=== PATIENT | male | born 1940 | race Caucasian/White ===

== ENCOUNTER → 2018-11-14 05:49 | Day surgery (SDC) | payer BC ==
--- NOTE | 2018-11-11 18:46 | HP ---
CC: Dr. Sutherland; Dr. Vincent Figueroa * ADMITTING HISTORY AND PHYSICAL: DATE OF ADMISSION: 11/14/18 ADMITTING DIAGNOSIS: Recurrent bladder cancer. PLANNED PROCEDURE: Transurethral resection of bladder tumor. SURGEON: Dr. Villagran. HISTORY OF PRESENT ILLNESS: Jhonny Roman is a 78-year-old former smoker with a history of recurrent superficial bladder cancer. He had recently undergone office cystoscopy which had revealed a recurrent bladder tumor in the posterior bladder wall. A CT urogram was obtained which did not reveal any abnormalities involving the kidneys or ureters, and he is now being brought in for transurethral resection of the bladder tumor. PAST MEDICAL HISTORY: Significant for: 1. Longstanding coronary artery disease with stable anginal symptoms for which he is followed up with Dr. Figueroa. 2. Diabetes mellitus. 3. High cholesterol. 4. Hypertension. PAST SURGICAL HISTORY: Significant for coronary artery bypass surgery and multiple bladder tumor resections, the most recent one being in 2013. MEDICATIONS ON ADMISSION: 1. Ramipril 10 mg twice a day. 2. Metoprolol 50 mg twice a day. 3. Amlodipine 5 mg daily. 4. Nitroglycerin 0.4 mg per hour patch p.r.n. 5. Aspirin 325 mg daily (currently supposed to be on 81 mg daily for the last week). 6. Pantoprazole sodium 40 mg daily. 7. Tramadol 50 mg every 6 hours p.r.n. 8. Rosuvastatin 20 mg daily. 9. Glipizide 10 mg daily. ALLERGIES: No known drug allergies. SMOKING HISTORY: He is a former smoker, who quit in 1992. REVIEW OF SYSTEMS: He has occasional chest pain with heavy lifting and has had regular followup with Dr. Figueroa and has not required any recent intervention. PHYSICAL EXAMINATION GENERAL: Reveals a pleasant, elderly gentleman. VITAL SIGNS: Blood pressure is 140/74, pulse 76 per minute and regular, temperature 97.9, oxygen saturation 97% on room air. LUNGS: Clear bilaterally. CARDIOVASCULAR: Regular rate and rhythm. S1, S2. ABDOMEN: Soft without masses. IMPRESSION: A 78-year-old former smoker with recurrent bladder tumor. PLAN: Planned procedure is transurethral resection of bladder tumor. [id number]/[facility] #: [id number] MTDD
[~2018-11-14 05:49] MED LIST: Acetaminophen TAB* 325 MG PO PRN; Buffered Lidocaine 1% SYRIN* 1 ML/SYRINGE INTRADERM ONE; Dexamethasone IV* 4 MG/ML 1 ML (4 MG) ONE; Famotidine IV* 10 MG/ML 2 ML (20 mg) IV ONE; Famotidine IV* 10 MG/ML 2 ML (20 mg) ONE; Furosemide IV* 10 MG/ML 2 ML VIAL (20 MG) ONE; HYDROmorphone INJ1* 1 MG/ML SYRINGE IV PRN; Ketorolac INJ* 30 MG/ML 1 ML VIAL ONE; Lactated Ringers 1000 ML Bag* 1,000 ML IV SCH; Lidocaine 2% PF * 5 ML VIAL ONE; Midazolam* 1 MG/ML 5 ML VIAL (5 MG) ONE; Naloxone* 0.4 MG/ML 1 ML VIAL IV PRN; Ondansetron INJ* 2 MG/ML VIAL ONE; Propofol* 10 MG/ML 20 ML BTL ONE; cefTRIAXone(*) 2 GM ADDV.VIAL IVPB ONE; fentaNYL* 50 MCG/ML 2 ML VIAL (100 MCG VIAL) ONE; mitoMYcin PWD* 40 MG in Sterile Water for Inj* 40 ML IRRIGATION ONE; oxyCODONE/Acetamin 5/325 MG* TAB PO PRN
--- NOTE | 2018-11-14 09:36 | OP ---
CC: Dr. Sutherland * DATE OF OPERATION: 11/14/18 - [facility] DATE OF : 38 SURGEON: Liam Villagran MD. ANESTHESIOLOGIST: Dr. Petersen. ANESTHESIA: General. PRE-OP DIAGNOSIS: Recurrent bladder tumor. POST-OP DIAGNOSIS: Recurrent bladder tumor. OPERATIVE PROCEDURE: Transurethral resection and fulguration of bladder tumor ( 2 to 3 cm aggregate). INDICATIONS: Jhonny Roman is a 78-year-old former smoker with a history of recurrent superficial bladder cancer. He was recently evaluated in the office and was noted to have what appears to be a recurrent bladder tumor. COMPLICATIONS: None. ESTIMATED BLOOD LOSS: Minimal. CATHETER: 22-Occitan Rosas. OPERATIVE FINDINGS: 1. Strictures, penile and bulbar urethra. 2. Probable recurrent bladder tumor posterior bladder wall. DESCRIPTION OF PROCEDURE: After induction of general anesthesia, the patient was placed in dorsal lithotomy position. Sequential compression devices were in place and functioning. Initial cystoscopy revealed strictures in the penile and bulbar urethra. The prostate is mildly enlarged. The bladder was examined. Some scaring is noted at the site of previous tumor resections. The trigone and ureteral orifices were unremarkable. In the posterior bladder wall , there were two adjacent areas of what appeared to be probable superficial recurrent bladder tumor. There was no evidence of any high-grade or invasive- appearing tumor. Using a biopsy forceps, phone representative biopsies were obtained and sent for histopathology. Next, a resectoscope was introduced and abnormal appearing areas were completely resected. Hemostasis was secured using the coagulating current. At the end of the procedure, hemostasis appeared satisfactory, and there was no evidence of bladder perforation. A 22-[employer] Rosas was placed for temporary bladder drainage. The patient tolerated the procedure satisfactorily and was transferred back to the recovery area in stable condition. [id number]/[facility] #: [id number] [facility]
[2018-11-14 12:42] VITALS: BP 169/88
== END | disposition home or self-care (01) ==
LOC: OR 05:49
PROVIDERS: ATTEND Urology
DX: C67.9 Malignant neoplasm of bladder, unspecified (principal); I25.10 Atherosclerotic heart disease of native coronary artery without angina pectoris; E11.9 Type 2 diabetes mellitus without complications; E78.00 Pure hypercholesterolemia, unspecified; I10 Essential (primary) hypertension; Z79.82 Long term (current) use of aspirin; Z87.891 Personal history of nicotine dependence
CPT/HCPCS: 88307; J0696; J1100; J1885; J1940; J2250; J2405; J2704; J3010; J9280

== ENCOUNTER 2020-08-25 02:57 | Inpatient (IN) ==
[2020-08-25 05:20] LABS: ABS Basophils 0.1 10^3/ul (0-0.2); ABS Eosinophils 0.3 10^3/ul (0-0.6); ABS Lymphocytes 2.7 10^3/ul (1.0-4.8); ABS Monocytes 0.8 10^3/ul (0-0.8); ABS Neutrophils 4.4 10^3/ul (1.5-7.7); Hematocrit 39 % (42-52); Hemoglobin 13.2 g/dL (14.0-18.0); Lymphocyte % 32.7 %; Mean Corpuscular HGB Conc 34 g/dL (31-36); Mean Corpuscular Hemoglobin 28 pg (27-31); Mean Corpuscular Volume 82 fL (80-94); Mean Platelet Volume 9.7 fL (7.4-10.4); Nucleated Red Blood Cells % 0.1; Platelet Count 134 10^3/uL (150-450); Red Blood Count 4.72 10^6 /uL (4.18-5.48); Red Cell Distribution Width 15 % (10-15); White Blood Count 8.3 10^3/uL (3.5-10.8)
[2020-08-25 05:39] LABS: ALT 20 U/L (7-52); AST 18 U/L (13-39); Albumin 4.3 g/dL (3.2-5.2); Albumin/Globulin Ratio 1.5 (1-3); Alkaline Phosphatase 80 U/L (35-149); Anion Gap 7 mmol/L (2-11); Blood Urea Nitrogen 22 mg/dL (6-24); CO2 Carbon Dioxide 24 mmol/L (22-32); Chloride 104 mmol/L (101-111); EGFR African American 98.2 (>60); EGFR Non-African American 81.2 (>60); Globulin 2.8 g/dL (2-4); Glucose 190 mg/dL (70-100); Potassium 3.9 mmol/L (3.5-5.0); Sodium 135 mmol/L (135-145); Total Protein 7.1 g/dL (6.4-8.9)
[2020-08-25 05:44] LABS: Troponin I 0.07 ng/mL (<0.03)
[2020-08-25] MEDS ORDERED: Ondansetron 4 mg VIAL 2 MG/ML 2 ml VIAL IV PRN (08:07)
[2020-08-25] MEDS ORDERED: Al Hydrox/Mg Hydrox/Simet LIQ 30 ML UDC PO PRN (08:07)
[2020-08-25] MEDS ORDERED: Dextrose 50% Syringe 50 ml 25 GM/50 ML SYRINGE IV PUSH PRN (08:19)
[2020-08-25 08:38] LABS: Troponin I 0.07 ng/mL (<0.03)
[2020-08-25] MEDS ORDERED: Enoxaparin 40 MG/0.4 ML SYR SUBCUT SCH (09:00)
[2020-08-25] MEDS ORDERED: Heparin DRIP 25,000 UNITS BAG 25,000 UNITS/500 ML BAG IV SCH (09:15)
[2020-08-25] MEDS ORDERED: Labetalol IV 5 MG/ML 20 ml VIAL IV PUSH ONE (09:22)
[2020-08-25] MEDS: Heparin 5000 UNITS/ML 1 mL VIAL IV SCH ×2 (10:00→17:29)
[2020-08-25 10:28] LABS: Blood Urea Nitrogen 22 mg/dL (6-24); EGFR African American 109.4 (>60); EGFR Non-African American 90.4 (>60)
[2020-08-25 10:37] LABS: Troponin I 0.07 ng/mL (<0.03)
[2020-08-25] MEDS: Nitroglycerin 0.4 mg/hr PATCH (10 mg) TRANSDERM SCH (11:14)
[2020-08-26] MEDS: Heparin 5000 UNITS/ML 1 mL VIAL IV SCH (00:58)
[2020-08-26 07:30] LABS: ABS Basophils 0.1 10^3/ul (0-0.2); ABS Eosinophils 0.3 10^3/ul (0-0.6); ABS Lymphocytes 2.1 10^3/ul (1.0-4.8); ABS Monocytes 0.8 10^3/ul (0-0.8); ABS Neutrophils 4.8 10^3/ul (1.5-7.7); Eosinophil % 3.4 %; Hematocrit 38 % (42-52); Lymphocyte % 26.5 %; Mean Corpuscular HGB Conc 34 g/dL (31-36); Mean Corpuscular Hemoglobin 28 pg (27-31); Mean Corpuscular Volume 81 fL (80-94); Mean Platelet Volume 10.1 fL (7.4-10.4); Platelet Count 130 10^3/uL (150-450); Red Blood Count 4.64 10^6 /uL (4.18-5.48); Red Cell Distribution Width 15 % (10-15); White Blood Count 8.1 10^3/uL (3.5-10.8)
[2020-08-26] MEDS: Nitroglycerin 0.4 mg/hr PATCH (10 mg) TRANSDERM SCH (10:16)
[2020-08-26 11:23] VITALS: BP 153/71
[2020-08-26] MEDS ORDERED: Regadenoson 0.4 MG/5 ML SYRINGE ONE (11:45)
== END 2020-08-26 16:07 | disposition home or self-care (01) | DRG 198 ==
LOC: ED 02:57 → MEDTELE 08:07
PROVIDERS: ADMIT Hospitalist; ATTEND Student in an Organized Health Care Education/Training Program

== ENCOUNTER 2022-12-05 19:13 | Inpatient (IN) ==
[2022-12-05 19:40] LABS: ABS Basophils 0.1 10^3/uL (0.0-0.1); ABS Eosinophils 0.3 10^3/uL (0.0-0.5); ABS Monocytes 0.6 10^3/uL (0.0-1.1); ABS Neutrophils 3.5 10^3/uL (1.5-7.6); ABS Nucleated RBC 0.01 10^3/ul; Eosinophil % 4.6 %; Hematocrit 36.9 % (38-53); Hemoglobin 12.5 g/dL (13.2-16.3); Lymphocyte % 30.8 %; Mean Corpuscular Hemoglobin 27.6 pg (27-33); Mean Corpuscular Hgb Conc 33.9 g/dL (31-36); Mean Corpuscular Volume 81.5 fL (80-97); Mean Platelet Volume 9.8 fL (7.5-11.2); Nucleated Red Blood Cells % 0.1 /100 WBC (0.0-0.4); Platelet Count 147 10^3/uL (150-450); Red Blood Count 4.52 10^6/uL (4.06-5.63); Red Cell Distribution Width 16.4 % (12-17); White Blood Count 6.5 10^3/uL (3.6-10.2)
[2022-12-05 19:50] LABS: INR 1.11 (0.83-1.13)
[2022-12-05 19:55] LABS: Albumin 4.5 g/dL (3.2-5.2); Albumin/Globulin Ratio 1.6 (1-3); Calcium 9.5 mg/dL (8.6-10.3); Creatinine, Serum 0.86 mg/dL (0.67-1.17); Globulin 2.9 g/dL (2-4); Potassium 4.4 mmol/L (3.5-5.0); Total Bilirubin 0.8 mg/dL (0.2-1.0); Total Protein 7.4 g/dL (6.4-8.9); eGFR CKD-EPI 85.9 (>60)
[2022-12-05 21:24] LABS: High Sensitivity Troponin 1 Hr 63 pg/mL (<20)
[2022-12-05] MEDS ORDERED: Heparin DRIP 25,000 UNITS BAG 25,000 UNITS/500 ML BAG IV SCH (22:00)
[2022-12-05] MEDS ORDERED: Heparin 5000 UNITS/ML 1 mL VIAL IV SCH (22:00)
[2022-12-05 22:30] LABS: ABS Basophils 0.1 10^3/uL (0.0-0.1); ABS Eosinophils 0.3 10^3/uL (0.0-0.5); ABS Lymphocytes 2.6 10^3/uL (1.0-4.8); ABS Monocytes 0.5 10^3/uL (0.0-1.1); ABS Neutrophils 3.5 10^3/uL (1.5-7.6); ABS Nucleated RBC 0.01 10^3/ul; Eosinophil % 4.1 %; Hematocrit 37.3 % (38-53); Hemoglobin 12.7 g/dL (13.2-16.3); Lymphocyte % 37.5 %; Mean Corpuscular Hemoglobin 27.8 pg (27-33); Mean Corpuscular Hgb Conc 34.2 g/dL (31-36); Mean Corpuscular Volume 81.4 fL (80-97); Mean Platelet Volume 9.3 fL (7.5-11.2); Nucleated Red Blood Cells % 0.1 /100 WBC (0.0-0.4); Platelet Count 154 10^3/uL (150-450); Red Blood Count 4.58 10^6/uL (4.06-5.63); Red Cell Distribution Width 16.3 % (12-17)
[2022-12-05 22:46] LABS: Creatinine, Serum 0.85 mg/dL (0.67-1.17); eGFR CKD-EPI 86.2 (>60)
[2022-12-06 00:45] LABS: High Sensitivity Troponin 3 Hr 408 pg/mL (<20)
[2022-12-06 07:11] LABS: ABS Basophils 0.1 10^3/uL (0.0-0.1); ABS Eosinophils 0.3 10^3/uL (0.0-0.5); ABS Monocytes 0.6 10^3/uL (0.0-1.1); ABS Neutrophils 3.1 10^3/uL (1.5-7.6); ABS Nucleated RBC 0.01 10^3/ul; Eosinophil % 4.6 %; Hematocrit 33.1 % (38-53); Hemoglobin 11.4 g/dL (13.2-16.3); Lymphocyte % 33.6 %; Mean Corpuscular Hemoglobin 28.1 pg (27-33); Mean Corpuscular Hgb Conc 34.5 g/dL (31-36); Mean Corpuscular Volume 81.3 fL (80-97); Mean Platelet Volume 9.3 fL (7.5-11.2); Nucleated Red Blood Cells % 0.1 /100 WBC (0.0-0.4); Platelet Count 133 10^3/uL (150-450); Red Blood Count 4.07 10^6/uL (4.06-5.63); Red Cell Distribution Width 15.9 % (12-17); White Blood Count 6.1 10^3/uL (3.6-10.2)
[2022-12-06] MEDS ORDERED: fentaNYL 100 mcg/2 ml 50 MCG/ML VIAL IV SLOW PU ONE (08:24)
[2022-12-06] MEDS ORDERED: Midazolam 10 mg/10 ml VIAL 1 mg/ml 10 ml VIAL (10 mg) IV SLOW PU ONE (08:24)
[2022-12-06] MEDS ORDERED: NS 0.9% 1000 ml BAG 1,000 ML IV SCH ×2 (08:30→15:15)
[2022-12-06 08:39] LABS: Creatinine, Serum 0.94 mg/dL (0.67-1.17); HDL Cholesterol 25.8 mg/dL; eGFR CKD-EPI 80.4 (>60)
[2022-12-06] MEDS ORDERED: Nitroglycerin 0.4 mg/hr PATCH (10 mg) TRANSDERM SCH ×2 (09:00→21:00)
[2022-12-06] MEDS: Isosorbide Mononit ER 30mg TAB PO SCH (09:33)
[2022-12-06] MEDS ORDERED: Heparin 1,000 UNIT/ML 10 ml (10,000 UNITS) CATHLAB/DIALYSIS ONE (12:02)
[2022-12-06] MEDS ORDERED: VERAPAMIL 2.5 MG/ML 2 ML VIAL ** 5 mg/2 ml ONE ×2 (12:02→13:18)
[2022-12-06] MEDS ORDERED: Heparin 2 UNITS/ML 1000 mls 2,000 ML IV ONE (12:03)
[2022-12-06] MEDS ORDERED: Lidocaine 1% MPF 5 ML VIAL ONE (12:03)
[2022-12-06] MEDS ORDERED: nitroGLYCERIN DRIP 25,000 MCG/250 ML BTL ONE (12:03)
[2022-12-06] MEDS ORDERED: Iohexol 350 (CONTRAST) 200 ML MDV IV ONE ×2 (12:03→13:25)
[2022-12-06] MEDS ORDERED: fentaNYL 100 mcg/2 ml 50 MCG/ML VIAL ONE (12:22)
[2022-12-06] MEDS ORDERED: Midazolam 5 mg/5 ml VIAL 1 mg/ml 5 ml VIAL (5 mg) ONE (12:22)
[2022-12-06] MEDS ORDERED: Bivalirudin 250 MG VIAL ONE ×2 (13:10→14:15)
[2022-12-06] MEDS ORDERED: Heparin 2 UNITS/ML 1000 mls 1,000 ML IV ONE (14:17)
[2022-12-07 06:56] LABS: Calcium 8.7 mg/dL (8.6-10.3); Creatinine, Serum 0.94 mg/dL (0.67-1.17); Potassium 3.8 mmol/L (3.5-5.0); eGFR CKD-EPI 80.4 (>60)
[2022-12-07] MEDS: Isosorbide Mononit ER 30mg TAB PO SCH (08:53)
[2022-12-07] MEDS ORDERED: Amiodarone 150 mg IVPREMIX 150 MG/100 ML BAG IV ONE (09:33)
[2022-12-07] MEDS ORDERED: Furosemide 20 mg/2 ml IV VIAL IV ONE (09:36)
[2022-12-07] MEDS ORDERED: Potassium Chlor 20 meq TAB.ER PO ONE (09:44)
[2022-12-07 11:35] LABS: TSH Ultra Thyroid Stim Horm 2.8 mcIU/mL (0.34-5.60)
[2022-12-07 11:36] LABS: Free T3 3.3 pg/mL (2.5-3.9)
[2022-12-07 11:37] LABS: Free T4 0.79 ng/dL (0.61-1.12)
[2022-12-07 16:24] VITALS: BP 158/46
== END 2022-12-07 16:30 | disposition home or self-care (01) | DRG 174 ==
LOC: ED 19:13 → SUATTDRO 22:44 → EDHOLD 22:44 → ICU 12-06 15:55
PROVIDERS: ADMIT Internal Medicine; ATTEND Internal Medicine